=== PATIENT | female | born 1970 | race African-American/Black ===

== ENCOUNTER 2020-09-10 16:50 | Emergency (ER) | payer BC ==
[~2020-09-10] VITALS: Ht 177.8 cm; Wt 127.0 kg
[2020-09-10 17:13] VITALS: Ht 177.8 cm; Wt 127.0 kg
[2020-09-10 18:00] LABS: BASOPHIL % 1.1 % (0.2-1.3); PLATELET COUNT 310 x10^3mcL (179-408); RED CELL DISTRIBUTION WIDTH 13.4 % (12.3-17.7)
[2020-09-10 18:25] LABS: CALCIUM 9.7 mg/dL (8.5-10.1); CARBON DIOXIDE 26.2 mmol/L (21-32); CHLORIDE SERUM 102 mmol/L (98-107); GFR1 > 60 mL/min; GLUCOSE SERUM 127 mg/dL (74-106); POTASSIUM SERUM 3.8 mmol/L (3.5-5.1); SODIUM SERUM 138 mmol/L (136-145)
[2020-09-10 18:30] LABS: ALBUMIN 3.5 g/dL (3.4-5.0); ALKALINE PHOSPHATASE 99 U/L (46-116); ALT/SGPT 44 U/L (14-59); AST/SGOT 26 U/L (15-37); BILIRUBIN TOTAL 1.4 mg/dL (0.20-1.00)
[2020-09-10 18:33] LABS: TOTAL PROTEIN, SERUM 8.3 g/dL (6.4-8.2)
[2020-09-11 00:25] VITALS: BP 149/66
== END 2020-09-11 00:25 | disposition short-term general hospital (02) ==
LOC: ED 16:50
PROVIDERS: Emergency Medicine
DX: R22.1 Localized swelling, mass and lump, neck (principal); E66.01 Morbid (severe) obesity due to excess calories; Z20.828 Contact with and (suspected) exposure to other viral communicable diseases
CPT/HCPCS: 86308; J1953; J2270; J2405; J2543; J3010; Q9967; U0003